=== PATIENT | male | born 1975 | race Caucasian/White ===

== ENCOUNTER → 2016-08-31 | Outpatient (CLI) | payer MEDICAID | LOC: MMGSC 16:26 | PROVIDERS: ATTEND Family Medicine | DX: L73.9 Follicular disorder, unspecified (principal) | CPT/HCPCS: 87070; 87205 ==

== ENCOUNTER → 2016-10-26 | Outpatient (CLI) | payer BC ==
[2016-10-26 19:18] LABS: ALT 57 U/L (21-72); AST 32 U/L (17-59); Alkaline Phosphatase 48 U/L (38-126); Anion Gap 13 mmol/L; Blood Urea Nitrogen 15 mg/dL (9-20); Calcium 10.1 mg/dL (8.4-10.2); Carbon Dioxide 24 mmol/L (22-30); Chloride 103 mmol/L (98-107); Glucose 87 mg/dL (74-99); Non-African American GFR(MDRD) >60 (>60 ml/min/1.73 sqM); Potassium 3.9 mmol/L (3.5-5.1); Sodium 140 mmol/L (137-145); Total Bilirubin 1.2 mg/dL (0.2-1.3); Total Protein 7.6 g/dL (6.3-8.2)
== END | disposition home or self-care (01) ==
LOC: MMGSC 17:01
PROVIDERS: ATTEND Family Medicine
DX: R79.89 Other specified abnormal findings of blood chemistry (principal); R63.5 Abnormal weight gain
CPT/HCPCS: 36415; 80053; 84439; 84443

== ENCOUNTER → 2018-09-04 | Outpatient (CLI) | payer BC ==
--- NOTE | 2018-09-04 08:58 | US ---
EXAMINATION TYPE: US liver DATE OF EXAM: 09/04/2018 COMPARISON: NONE CLINICAL HISTORY: R94.5 Elevated LFT. Takes blood pressure medication. EXAM MEASUREMENTS: Liver Length: 16.1 cm Gallbladder Wall: 0.2 cm CBD: 0.3 cm Right Kidney: 13.4 x 6.8 x 6.1 cm Pancreas: Visualized portions wnl Liver: hyperechoic to right renal cortex suggests fatty liver; focal fatty sparing noted near gallbl adder = 1.2 x 1.7 x 2.9cm Gallbladder: wnl Evidence for sonographic [place]'s sign: no CBD: wnl Right Kidney: No hydronephrosis or masses seen Visualized pancreas shows no worrisome mass or ductal dilatation. Visualized liver is heterogeneously hyperechoic. No intrahepatic ductal dilatation. Evaluation for focal masses is suboptimal due to the heterogeneity. No surrounding ascites is seen. Gallbladder is identified without shadowing mobile ga llstones. No hydronephrosis and right kidney. IMPRESSION: Heterogeneous hyperechoic appearance of the liver favors product of diffuse fatty infiltr ation.
== END | disposition home or self-care (01) ==
LOC: RADUSWWP 06:53
PROVIDERS: ATTEND Family Medicine
DX: K76.0 Fatty (change of) liver, not elsewhere classified (principal)
CPT/HCPCS: 76705

== ENCOUNTER → 2020-08-31 | Outpatient (CLI) | payer BC ==
--- NOTE | 2020-08-31 21:46 | MR ---
EXAMINATION TYPE: MR lumbar spine wo con DATE OF EXAM: 08/31/2020 COMPARISON: 12/22/2015 HISTORY: Low back pain down both legs since 1999. CONTRAST: 0 mL intravenous Gadavist. TECHNIQUE: Multiplanar, multisequence images of the lumbar spine were acquired. FINDINGS: L5-S1: Mild disc bulge is present. There is increased signal on T2-weighted sequences within the post erior disc space compatible with annular tear. No significant anterior thecal sac compression is evid ent. Neural foramen are patent. No spinal canal stenosis is present. Disc desiccation is present. L4-L5: No significant disc bulge is evident. No spinal canal stenosis present. T2 sagittal images hav e increased signal suggesting a small annular tear. Previous subligamentous disc herniation has large ly resolved L3-L4: There is disc bulging. This is central and slightly left paracentral. This is slightly larger comparison. No AP spinal canal stenosis present. There is some mild anterior thecal sac compression. Disc desiccation is present. L2-L3: No significant disc bulge or disc herniation. No spinal canal stenosis. No foraminal stenosi s. L1-L2: No significant disc bulge or disc herniation. No spinal canal stenosis. No foraminal stenosi s. T12-L1: No significant disc bulge or disc herniation. No spinal canal stenosis. No foraminal stenos is. IMPRESSION: 1. Annular tears L4-5 and L5-S1. 2. Prior subligamentous disc herniation L4-5 appears largely resolved. 3. Increasing central left paracentral disc bulge at L3-4 with mild anterior thecal sac compression. 4. Mild disc bulge without spinal canal stenosis or neural foraminal stenosis
== END | disposition home or self-care (01) ==
LOC: RADMRIMAIN 19:31
PROVIDERS: ATTEND Family Medicine
DX: M51.16 Intervertebral disc disorders with radiculopathy, lumbar region (principal)
CPT/HCPCS: 72148